=== PATIENT | female | born 1945 | race Caucasian/White ===

== ENCOUNTER 2023-09-19 15:37 | Inpatient (IN) ==
[2023-09-19] MEDS ORDERED: IOPAMIDOL 100 ML BOTTLE IV ONE (15:38)
[2023-09-19] MEDS: methylPREDNISolone SOD SUCC 125 MG/2 ML VIAL IV ONE (16:37)
[2023-09-19] MEDS: IPRATROPIUM/ALBUTEROL 3 ML AMPUL.NEB NEB ONE (17:21)
[2023-09-19] MEDS: cefTRIAXone 1 GM VIAL IV ONE (17:28)
[2023-09-19] MEDS: AZITHROMYCIN 500 MG in DEXTROSE 5% IN WATER 250 ML IV ONE (17:28)
[2023-09-19 17:30] LABS: Blood Urea Nitrogen 7 mg/dL (8-23); Calcium 8.7 mg/dL (8.6-10.4); Carbon Dioxide 30 mmol/L (22-30); Chloride 98 mmol/L (96-108); Glomerular Filtration Rate 99; Glucose 110 mg/dL (70-105)
[2023-09-19 17:39] LABS: Basophils # (Auto) 0.01 K/mcL (0.00-0.30); Basophils % (Auto) 0.2 % (0.0-2.0); Eosinophils # (Auto) 0.03 K/mcL (0.00-0.70); Eosinophils % (Auto) 0.5 % (0.0-7.0); Hematocrit 33.3 % (34.1-44.9); Hemoglobin 10.3 g/dL (11.2-15.7); Lymphocytes # (Auto) 0.55 K/mcL (1.50-4.80); Lymphocytes % (Auto) 9.9 % (15.5-49.0); Mean Cell Volume 102.5 fL (80.0-100.0); Mean Corpuscular HGB Conc 30.9 g/dL (31.0-36.0); Monocytes # (Auto) 0.74 K/mcL (0.10-0.90); Monocytes % (Auto) 13.4 % (1.0-12.0); Neutrophils % (Auto) 75.8 % (38.0-78.0); Platelet Count 241 K/mcL (140-440); RBC 3.25 M/mcL (3.59-5.38); WBC 5.5 K/mcL (4.5-11.0)
[2023-09-19] MEDS: VANCOMYCIN 750 MG in 0.9 % SODIUM CHLORIDE 250 ML IV ONE (20:32)
[2023-09-19] MEDS: VANCOMYCIN PER PHARMACY IV SCH (20:32)
[2023-09-19] MEDS ORDERED: ONDANSETRON 4 MG/2 ML VIAL IV PRN (21:03)
[2023-09-19] MEDS ORDERED: ZOLPIDEM 5 MG TABLET PO PRN (21:03)
[2023-09-19] MEDS ORDERED: traZODone HCL 50 MG TABLET PO PRN (21:03)
[2023-09-19] MEDS ORDERED: oxyCODONE IR 5 MG TABLET PO PRN (21:03)
[2023-09-19] MEDS: BUDESONIDE 0.5 MG/2 ML AMPUL.NEB NEB SCH (21:15)
[2023-09-19] MEDS: IPRATROPIUM/ALBUTEROL 3 ML AMPUL.NEB NEB SCH (21:15)
[2023-09-19] MEDS: BENZONATATE 100 MG CAPSULE PO SCH (21:46)
[2023-09-19] MEDS: guaiFENesin 600 MG TAB.SR.12H PO SCH (21:47)
[2023-09-19] MEDS: SIMVASTATIN 20 MG TABLET PO SCH (21:47)
[2023-09-19] MEDS: MONTELUKAST 10 MG TABLET PO SCH (21:47)
[2023-09-19] MEDS: SENNOSIDES 1 TABLET PO SCH (21:49)
[2023-09-19] MEDS: 0.9 % SODIUM CHLORIDE 10 ML SYRINGE IV SCH (22:02)
[2023-09-19] MEDS: PIPERACILLIN SODIUM/TAZOBACTAM 3.375 GM in DEXTROSE 5% IN WATER 50 ML IV ONE (22:06)
[2023-09-20] MEDS: methylPREDNISolone SOD SUCC 40 MG/ML VIAL IV SCH (00:43)
[2023-09-20] MEDS: PIPERACILLIN SODIUM/TAZOBACTAM 3.375 GM in DEXTROSE 5% IN WATER 100 ML IV SCH (02:13)
[2023-09-20] MEDS: PIPERACILLIN SODIUM/TAZOBACTAM 3.375 GM in DEXTROSE 5% IN WATER 50 ML IV SCH (04:10)
[2023-09-20 06:37] LABS: Basophils # (Auto) 0.01 K/mcL (0.00-0.30); Basophils % (Auto) 0.4 % (0.0-2.0); Eosinophils # (Auto) 0 K/mcL (0.00-0.70); Eosinophils % (Auto) 0 % (0.0-7.0); Hematocrit 34.4 % (34.1-44.9); Hemoglobin 10.6 g/dL (11.2-15.7); Lymphocytes # (Auto) 0.18 K/mcL (1.50-4.80); Lymphocytes % (Auto) 6.6 % (15.5-49.0); Mean Cell Volume 102.4 fL (80.0-100.0); Mean Corpuscular HGB Conc 30.8 g/dL (31.0-36.0); Mean Platelet Volume 9.7 fL (8.8-12.5); Monocytes # (Auto) 0.04 K/mcL (0.10-0.90); Monocytes % (Auto) 1.5 % (1.0-12.0); Neutrophils % (Auto) 91.1 % (38.0-78.0); Platelet Count 226 K/mcL (140-440); RBC 3.36 M/mcL (3.59-5.38); Red Cell Distribution Width 12.7 % (11.5-14.5); WBC 2.7 K/mcL (4.5-11.0)
[2023-09-20 06:59] LABS: ALT/SGPT 5 U/L (<40); AST/SGOT 19 U/L (<32); Albumin 3.6 gm/dL (3.2-5.2); Albumin/Globulin Ratio 1.4 (1.0-2.3); Alkaline Phosphatase 115 U/L (39-117); Bilirubin,Total 0.2 mg/dL (0.1-1.0); Blood Urea Nitrogen 10 mg/dL (8-23); Calcium 8.5 mg/dL (8.6-10.4); Carbon Dioxide 30 mmol/L (22-30); Chloride 100 mmol/L (96-108); Globulin 2.5 gm/dL (2.2-3.7); Glomerular Filtration Rate 99; Glucose 160 mg/dL (70-105)
[2023-09-20] MEDS: ACETAMINOPHEN 325 MG TABLET PO PRN (07:06)
[2023-09-20] MEDS: OMEPRAZOLE 20 MG CAPSULE PO SCH (07:07)
[2023-09-20] MEDS: DOXAZOSIN 1 MG TABLET PO SCH (09:18)
[2023-09-20] MEDS: ENOXAPARIN 30 MG/0.3 ML SYRINGE SQ SCH (09:18)
[2023-09-20] MEDS: amLODIPine 5 MG TABLET PO SCH (09:18)
[2023-09-20] MEDS: LORATADINE 10 MG TABLET PO SCH (09:19)
[2023-09-20] MEDS: VANCOMYCIN 1,000 MG in 0.9 % SODIUM CHLORIDE 250 ML IV ONE (14:53)
[2023-09-20] MEDS: POTASSIUM CHLORIDE 10 MEQ TABLET PO SCH (17:27)
[2023-09-20] MEDS: CARBOXYMETHYLCELLULOSE SODIUM 1 EACH DROPER.GEL OU SCH (21:44)
[2023-09-20] MEDS: ATORVASTATIN 10 MG TABLET PO SCH (21:44)
[2023-09-20] MEDS: hydrOXYzine 10 MG TABLET PO PRN (21:44)
[2023-09-20] MEDS: MELATONIN 3 MG TABLET PO PRN (21:44)
[2023-09-21 06:03] LABS: ALT/SGPT < 5 U/L (<40); AST/SGOT 15 U/L (<32); Albumin 3.5 gm/dL (3.2-5.2); Albumin/Globulin Ratio 1.5 (1.0-2.3); Alkaline Phosphatase 104 U/L (39-117); Bilirubin,Total < 0.2 mg/dL (0.1-1.0); Blood Urea Nitrogen 13 mg/dL (8-23); Calcium 8.6 mg/dL (8.6-10.4); Carbon Dioxide 32 mmol/L (22-30); Chloride 101 mmol/L (96-108); Globulin 2.4 gm/dL (2.2-3.7); Glomerular Filtration Rate 99; Glucose 150 mg/dL (70-105)
[2023-09-21 06:22] LABS: Basophils # (Auto) 0.02 K/mcL (0.00-0.30); Basophils % (Auto) 0.2 % (0.0-2.0); Eosinophils # (Auto) 0 K/mcL (0.00-0.70); Eosinophils % (Auto) 0 % (0.0-7.0); Hematocrit 33.8 % (34.1-44.9); Hemoglobin 10.4 g/dL (11.2-15.7); Lymphocytes # (Auto) 0.26 K/mcL (1.50-4.80); Mean Cell Volume 102.7 fL (80.0-100.0); Mean Corpuscular HGB Conc 30.8 g/dL (31.0-36.0); Mean Platelet Volume 9.7 fL (8.8-12.5); Monocytes # (Auto) 0.33 K/mcL (0.10-0.90); Monocytes % (Auto) 3.8 % (1.0-12.0); Neutrophils % (Auto) 92.8 % (38.0-78.0); Platelet Count 256 K/mcL (140-440); RBC 3.29 M/mcL (3.59-5.38); Red Cell Distribution Width 12.9 % (11.5-14.5); WBC 8.7 K/mcL (4.5-11.0)
[2023-09-21] MEDS: LEVOTHYROXINE 50 MCG TABLET PO SCH (07:33)
[2023-09-21] MEDS: VANCOMYCIN 1,000 MG in 0.9 % SODIUM CHLORIDE 250 ML IV SCH (09:33)
[2023-09-21] MEDS: MAGNESIUM OXIDE 400 MG TABLET PO SCH (09:35)
[2023-09-21] MEDS: VITAMIN D3 25 MCG TABLET PO SCH (09:35)
[2023-09-21] MEDS: PIPERACILLIN SODIUM/TAZOBACTAM 3.375 GM in 0.9 % SODIUM CHLORIDE 100 ML IV SCH (10:53)
[2023-09-21 18:19] LABS: C-Reactive Protein 0.84 mg/dL (0.03-0.80)
[2023-09-21] MEDS: methylPREDNISolone SOD SUCC 40 MG/ML VIAL IV SCH (21:59)
[2023-09-22 07:02] LABS: C-Reactive Protein < 0.30 mg/dL (0.03-0.80)
[2023-09-22 07:12] LABS: ALT/SGPT 8 U/L (<40); AST/SGOT 13 U/L (<32); Albumin 3.5 gm/dL (3.2-5.2); Albumin/Globulin Ratio 1.6 (1.0-2.3); Alkaline Phosphatase 95 U/L (39-117); Bilirubin,Total < 0.2 mg/dL (0.1-1.0); Blood Urea Nitrogen 22 mg/dL (8-23); Calcium 8.7 mg/dL (8.6-10.4); Carbon Dioxide 33 mmol/L (22-30); Chloride 105 mmol/L (96-108); Globulin 2.2 gm/dL (2.2-3.7); Glomerular Filtration Rate 99; Glucose 130 mg/dL (70-105)
[2023-09-22 07:26] LABS: Basophils # (Auto) 0.01 K/mcL (0.00-0.30); Basophils % (Auto) 0.1 % (0.0-2.0); Eosinophils # (Auto) 0 K/mcL (0.00-0.70); Eosinophils % (Auto) 0 % (0.0-7.0); Hematocrit 33.7 % (34.1-44.9); Lymphocytes # (Auto) 0.29 K/mcL (1.50-4.80); Lymphocytes % (Auto) 3.5 % (15.5-49.0); Mean Cell Volume 104.7 fL (80.0-100.0); Mean Corpuscular HGB Conc 29.7 g/dL (31.0-36.0); Mean Platelet Volume 9.7 fL (8.8-12.5); Monocytes # (Auto) 0.43 K/mcL (0.10-0.90); Monocytes % (Auto) 5.2 % (1.0-12.0); Platelet Count 259 K/mcL (140-440); RBC 3.22 M/mcL (3.59-5.38); Red Cell Distribution Width 12.9 % (11.5-14.5); WBC 8.3 K/mcL (4.5-11.0)
[2023-09-22] MEDS: methylPREDNISolone SOD SUCC 40 MG/ML VIAL IV SCH (08:15)
[2023-09-22] MEDS: VANCOMYCIN 750 MG in 0.9 % SODIUM CHLORIDE 250 ML IV SCH (21:21)
[2023-09-23 06:56] LABS: Basophils # (Auto) 0.01 K/mcL (0.00-0.30); Basophils % (Auto) 0.1 % (0.0-2.0); Eosinophils # (Auto) 0 K/mcL (0.00-0.70); Eosinophils % (Auto) 0 % (0.0-7.0); Hematocrit 32.6 % (34.1-44.9); Hemoglobin 9.6 g/dL (11.2-15.7); Lymphocytes # (Auto) 0.92 K/mcL (1.50-4.80); Lymphocytes % (Auto) 11.9 % (15.5-49.0); Mean Cell Volume 106.9 fL (80.0-100.0); Mean Corpuscular HGB Conc 29.4 g/dL (31.0-36.0); Monocytes # (Auto) 1.06 K/mcL (0.10-0.90); Monocytes % (Auto) 13.7 % (1.0-12.0); Platelet Count 243 K/mcL (140-440); RBC 3.05 M/mcL (3.59-5.38); Red Cell Distribution Width 13.1 % (11.5-14.5); WBC 7.7 K/mcL (4.5-11.0)
[2023-09-23 07:08] LABS: C-Reactive Protein < 0.30 mg/dL (0.03-0.80)
[2023-09-23 07:10] LABS: ALT/SGPT 7 U/L (<40); AST/SGOT 14 U/L (<32); Albumin 3.4 gm/dL (3.2-5.2); Albumin/Globulin Ratio 1.8 (1.0-2.3); Alkaline Phosphatase 83 U/L (39-117); Bilirubin,Total < 0.2 mg/dL (0.1-1.0); Blood Urea Nitrogen 24 mg/dL (8-23); Calcium 8.4 mg/dL (8.6-10.4); Carbon Dioxide 36 mmol/L (22-30); Chloride 105 mmol/L (96-108); Globulin 1.9 gm/dL (2.2-3.7); Glomerular Filtration Rate 99; Glucose 80 mg/dL (70-105)
[2023-09-23] MEDS: DOXYCYCLINE 100 MG in DEXTROSE 5% IN WATER 100 ML IV SCH (08:50)
[2023-09-23] MEDS: LEVOFLOXACIN 750 MG/150 ML BAG IV SCH (10:55)
[2023-09-24 06:40] LABS: Basophils # (Auto) 0.01 K/mcL (0.00-0.30); Basophils % (Auto) 0.2 % (0.0-2.0); Eosinophils # (Auto) 0 K/mcL (0.00-0.70); Eosinophils % (Auto) 0 % (0.0-7.0); Hematocrit 33.4 % (34.1-44.9); Hemoglobin 9.9 g/dL (11.2-15.7); Lymphocytes # (Auto) 0.68 K/mcL (1.50-4.80); Mean Corpuscular HGB Conc 29.6 g/dL (31.0-36.0); Mean Platelet Volume 9.9 fL (8.8-12.5); Monocytes # (Auto) 0.68 K/mcL (0.10-0.90); Neutrophils % (Auto) 77.5 % (38.0-78.0); Platelet Count 228 K/mcL (140-440); RBC 3.18 M/mcL (3.59-5.38); Red Cell Distribution Width 12.8 % (11.5-14.5); WBC 6.2 K/mcL (4.5-11.0)
[2023-09-24 07:25] LABS: ALT/SGPT 8 U/L (<40); AST/SGOT 12 U/L (<32); Albumin 3.5 gm/dL (3.2-5.2); Albumin/Globulin Ratio 1.9 (1.0-2.3); Alkaline Phosphatase 84 U/L (39-117); Bilirubin,Total < 0.2 mg/dL (0.1-1.0); Blood Urea Nitrogen 12 mg/dL (8-23); Calcium 8.8 mg/dL (8.6-10.4); Carbon Dioxide 37 mmol/L (22-30); Chloride 100 mmol/L (96-108); Globulin 1.8 gm/dL (2.2-3.7); Glomerular Filtration Rate 109; Glucose 99 mg/dL (70-105)
[2023-09-24] MEDS: LEVOFLOXACIN 750 MG TABLET PO SCH (09:45)
[2023-09-24] MEDS: DOXYCYCLINE HYCLATE 100 MG TABLET.ORL PO SCH (09:48)
[2023-09-25] MEDS ORDERED: predniSONE 10 MG TABLET PO SCH (08:00)
== END 2023-09-24 12:35 | DRG 190 ==
LOC: ED 15:37 → MEDSUR 21:00 → INTOOBSV 21:00
PROVIDERS: ADMIT Internal Medicine; ATTEND Student in an Organized Health Care Education/Training Program

== ENCOUNTER 2023-10-08 01:21 | Inpatient (IN) ==
[2023-10-08] MEDS ORDERED: IOPAMIDOL 100 ML BOTTLE IV ONE (01:22)
[2023-10-08] MEDS: IPRATROPIUM/ALBUTEROL 3 ML AMPUL.NEB NEB ONE (02:08)
[2023-10-08 02:49] LABS: ALT/SGPT 14 U/L (<40); AST/SGOT 31 U/L (<32); Albumin 3.1 gm/dL (3.2-5.2); Albumin/Globulin Ratio 1.2 (1.0-2.3); Alkaline Phosphatase 97 U/L (39-117); Bilirubin,Total < 0.2 mg/dL (0.1-1.0); Blood Urea Nitrogen 14 mg/dL (8-23); Calcium 8.7 mg/dL (8.6-10.4); Carbon Dioxide 35 mmol/L (22-30); Chloride 93 mmol/L (96-108); Globulin 2.5 gm/dL (2.2-3.7); Glomerular Filtration Rate 99; Glucose 146 mg/dL (70-105)
[2023-10-08 03:05] LABS: Hemoglobin 10.1 g/dL (11.2-15.7); Mean Cell Volume 99.1 fL (80.0-100.0); Mean Corpuscular HGB Conc 30.6 g/dL (31.0-36.0); Mean Platelet Volume 10.3 fL (8.8-12.5); Platelet Count 168 K/mcL (140-440); RBC 3.33 M/mcL (3.59-5.38); Red Cell Distribution Width 13.1 % (11.5-14.5); WBC 9.5 K/mcL (4.5-11.0)
[2023-10-08 04:33] LABS: Band Neutrophils % 7 % (0-10); Lymphocytes % 3 % (15-49); Monocytes % (Manual) 2 % (1-12); Platelet Estimate NORMAL (Normal); RBC Morphology NORMAL (Normal); Segmented Neutrophils % 88 % (38-78)
[2023-10-08] MEDS: PIPERACILLIN SODIUM/TAZOBACTAM 3.375 GM in DEXTROSE 5% IN WATER 50 ML IV ONE (08:36)
[2023-10-08] MEDS ORDERED: LACTULOSE 20 GM/30 ML ORAL.SOL PO PRN (09:47)
[2023-10-08] MEDS ORDERED: SENNOSIDES 1 TABLET PO PRN (09:47)
[2023-10-08] MEDS ORDERED: ONDANSETRON 4 MG/2 ML VIAL IV PRN (09:47)
[2023-10-08] MEDS: 0.9 % SODIUM CHLORIDE 1,000 ML IV SCH (09:52)
[2023-10-08] MEDS: AZITHROMYCIN 500 MG in DEXTROSE 5% IN WATER 250 ML IV SCH (10:31)
[2023-10-08] MEDS: 0.9 % SODIUM CHLORIDE 500 ML IV ONE (10:33)
[2023-10-08] MEDS: CEFEPIME 2 GM VIAL IV SCH (10:42)
[2023-10-08] MEDS: methylPREDNISolone SOD SUCC 125 MG/2 ML VIAL IV SCH (10:42)
[2023-10-08] MEDS: ENOXAPARIN 40 MG/0.4 ML SYRINGE SQ SCH (10:42)
[2023-10-08] MEDS: IPRATROPIUM/ALBUTEROL 3 ML AMPUL.NEB NEB SCH (10:42)
[2023-10-08] MEDS: DOCUSATE SODIUM 100 MG CAPSULE PO SCH (10:43)
[2023-10-08 12:53] LABS: ABG Methemoglobin 0.4 % (0.4-1.5); Total Hemoglobin 11.4 gm/Dl (12.0-15.0); VBG Base Excess 9 (-2-3); VBG HCO3 35.9 mmol/L (24.0-28.0); VBG Oxygen Saturation 93.6 % (40.0-70.0); VBG PCO2 63.9 mmHg (41.0-51.0); VBG PH 7.37 U (7.32-7.42); VBG PO2 119.2 mmHg (25.0-40.0); VBG Total CO2 37.9 mmol/L (25.0-29.0)
[2023-10-08 13:55] LABS: ALT/SGPT 21 U/L (<40); AST/SGOT 22 U/L (<32); Albumin 2.9 gm/dL (3.2-5.2); Alkaline Phosphatase 101 U/L (39-117); Bilirubin,Direct < 0.2 mg/dL (0-0.3); Bilirubin,Total < 0.2 mg/dL (0.1-1.0); Blood Urea Nitrogen 12 mg/dL (8-23); Calcium 7.6 mg/dL (8.6-10.4); Carbon Dioxide 33 mmol/L (22-30); Chloride 100 mmol/L (96-108); Globulin 2.9 gm/dL (2.2-3.7); Glomerular Filtration Rate 109; Glucose 251 mg/dL (70-105); Lactate Dehydrogenase 165 U/L (135-225); Phosphorous 2.6 mg/dL (2.5-4.5); Triglycerides 51 mg/dL (<150)
[2023-10-08] MEDS ORDERED: ACETAMINOPHEN 500 MG TABLET PO PRN (15:13)
[2023-10-08] MEDS: 0.45 % SODIUM CHLORIDE 1,000 ML IV SCH (15:22)
[2023-10-08] MEDS: 0.9 % SODIUM CHLORIDE 10 ML SYRINGE IV SCH (15:24)
[2023-10-08] MEDS ORDERED: ALBUTEROL SULFATE 60 PUFF INHALER INH PRN (15:30)
[2023-10-08] MEDS: ACETAMINOPHEN 325 MG TABLET PO PRN (17:13)
[2023-10-08] MEDS ORDERED: [UNRECOGNIZED DRUG - OTHER] PO PRN (20:12)
[2023-10-08] MEDS: MONTELUKAST 10 MG TABLET PO SCH (20:29)
[2023-10-08] MEDS: ATORVASTATIN 10 MG TABLET PO SCH (20:29)
[2023-10-08] MEDS: PROPYLENE GLYCOL OU SCH (20:30)
[2023-10-08] MEDS: POLYETHYLENE GLYCOL 400 OU SCH (20:30)
[2023-10-08] MEDS: hydrOXYzine 10 MG TABLET PO PRN (20:47)
[2023-10-09 06:32] LABS: ABG Methemoglobin 0.2 % (0.4-1.5); Total Hemoglobin 11.7 gm/Dl (12.0-15.0); VBG Base Excess 10 (-2-3); VBG HCO3 35.3 mmol/L (24.0-28.0); VBG Oxygen Saturation 90.4 % (40.0-70.0); VBG PCO2 52.3 mmHg (41.0-51.0); VBG PH 7.45 U (7.32-7.42); VBG Total CO2 36.9 mmol/L (25.0-29.0)
[2023-10-09 06:34] LABS: Basophils # (Auto) 0.01 K/mcL (0.00-0.30); Basophils % (Auto) 0.1 % (0.0-2.0); Eosinophils # (Auto) 0 K/mcL (0.00-0.70); Eosinophils % (Auto) 0 % (0.0-7.0); Hematocrit 34.2 % (34.1-44.9); Hemoglobin 10.4 g/dL (11.2-15.7); Lymphocytes # (Auto) 0.23 K/mcL (1.50-4.80); Lymphocytes % (Auto) 2.8 % (15.5-49.0); Mean Cell Volume 100.3 fL (80.0-100.0); Mean Corpuscular HGB Conc 30.4 g/dL (31.0-36.0); Mean Platelet Volume 10.5 fL (8.8-12.5); Monocytes # (Auto) 0.64 K/mcL (0.10-0.90); Monocytes % (Auto) 7.7 % (1.0-12.0); Neutrophils % (Auto) 89.3 % (38.0-78.0); Platelet Count 171 K/mcL (140-440); RBC 3.41 M/mcL (3.59-5.38); Red Cell Distribution Width 12.9 % (11.5-14.5); WBC 8.3 K/mcL (4.5-11.0)
[2023-10-09 06:47] LABS: ALT/SGPT 15 U/L (<40); AST/SGOT 22 U/L (<32); Albumin 3.1 gm/dL (3.2-5.2); Albumin/Globulin Ratio 1.1 (1.0-2.3); Alkaline Phosphatase 90 U/L (39-117); Bilirubin,Direct < 0.2 mg/dL (0-0.3); Bilirubin,Total < 0.2 mg/dL (0.1-1.0); Blood Urea Nitrogen 11 mg/dL (8-23); Calcium 8.9 mg/dL (8.6-10.4); Carbon Dioxide 36 mmol/L (22-30); Chloride 97 mmol/L (96-108); Globulin 2.7 gm/dL (2.2-3.7); Glomerular Filtration Rate 109; Glucose 149 mg/dL (70-105); Lactate Dehydrogenase 179 U/L (135-225); Phosphorous 1.8 mg/dL (2.5-4.5); Triglycerides 90 mg/dL (<150); Uric Acid 1.9 mg/dL (2.5-8.0)
[2023-10-09] MEDS ORDERED: METOPROLOL SUCCINATE 25 MG TAB.XL.24H PO SCH (09:00)
[2023-10-09] MEDS: LIDOCAINE 4% TOP PATCH TOPICAL SCH (09:19)
[2023-10-09] MEDS: guaiFENesin 600 MG TAB.SR.12H PO SCH (09:19)
[2023-10-09] MEDS: MULTIVIT,THER IRON,CA,FA & MIN 1 TABLET PO SCH (09:19)
[2023-10-09] MEDS: OMEPRAZOLE 20 MG CAPSULE PO SCH (09:20)
[2023-10-09] MEDS: DOXAZOSIN 1 MG TABLET PO SCH (09:20)
[2023-10-09] MEDS: MAGNESIUM OXIDE 400 MG TABLET PO SCH (09:20)
[2023-10-09] MEDS: VITAMIN D3 25 MCG TABLET PO SCH (09:21)
[2023-10-09] MEDS: amLODIPine 5 MG TABLET PO SCH (09:22)
[2023-10-09] MEDS: LEVOTHYROXINE 50 MCG TABLET PO SCH (09:22)
[2023-10-09] MEDS: METOPROLOL SUCCINATE 25 MG TAB.XL.24H PO SCH (09:22)
[2023-10-09] MEDS: LORATADINE 10 MG TABLET PO SCH (09:22)
[2023-10-09] MEDS: Fluticasone-Umeclidinium-Vilanterol [Trelegy Ellipta] Inhaler INH SCH (16:46)
[2023-10-09] MEDS: LORazepam 0.5 MG TABLET PO PRN (18:46)
[2023-10-09] MEDS: MELATONIN 3 MG TABLET PO PRN (19:37)
[2023-10-10 05:43] LABS: Basophils # (Auto) 0.01 K/mcL (0.00-0.30); Basophils % (Auto) 0.1 % (0.0-2.0); Eosinophils # (Auto) 0 K/mcL (0.00-0.70); Eosinophils % (Auto) 0 % (0.0-7.0); Hematocrit 32.8 % (34.1-44.9); Hemoglobin 9.9 g/dL (11.2-15.7); Lymphocytes # (Auto) 0.21 K/mcL (1.50-4.80); Lymphocytes % (Auto) 2.6 % (15.5-49.0); Mean Cell Volume 101.5 fL (80.0-100.0); Mean Corpuscular HGB Conc 30.2 g/dL (31.0-36.0); Mean Platelet Volume 10.6 fL (8.8-12.5); Monocytes # (Auto) 0.22 K/mcL (0.10-0.90); Monocytes % (Auto) 2.7 % (1.0-12.0); Neutrophils % (Auto) 94.5 % (38.0-78.0); Platelet Count 163 K/mcL (140-440); RBC 3.23 M/mcL (3.59-5.38); Red Cell Distribution Width 12.9 % (11.5-14.5); WBC 8.2 K/mcL (4.5-11.0)
[2023-10-10 06:06] LABS: ALT/SGPT 14 U/L (<40); AST/SGOT 17 U/L (<32); Albumin/Globulin Ratio 1.2 (1.0-2.3); Alkaline Phosphatase 83 U/L (39-117); Bilirubin,Direct < 0.2 mg/dL (0-0.3); Bilirubin,Total < 0.2 mg/dL (0.1-1.0); Blood Urea Nitrogen 17 mg/dL (8-23); Calcium 8.8 mg/dL (8.6-10.4); Carbon Dioxide 37 mmol/L (22-30); Chloride 99 mmol/L (96-108); Globulin 2.5 gm/dL (2.2-3.7); Glomerular Filtration Rate 109; Glucose 151 mg/dL (70-105); Lactate Dehydrogenase 177 U/L (135-225); Phosphorous 1.8 mg/dL (2.5-4.5); Triglycerides 84 mg/dL (<150); Uric Acid 1.8 mg/dL (2.5-8.0)
[2023-10-10] MEDS: ALBUTEROL SULFATE 2.5 MG/3 ML NEBULIZER NEB PRN (07:18)
[2023-10-10] MEDS ORDERED: ONDANSETRON 4 MG ODT TABLET SL PRN (12:33)
[2023-10-10] MEDS ORDERED: morphine 4 MG/ML VIAL NEB PRN (12:33)
[2023-10-10] MEDS ORDERED: LACTOPEROXI/GLUC OXID/POT THIO 1 EACH GEL..EA. TOPICAL PRN (12:33)
[2023-10-10] MEDS: morphine 4 MG/ML VIAL IV PRN (12:45)
[2023-10-10] MEDS: 0.9 % SODIUM CHLORIDE 10 ML SYRINGE IV SCH (15:29)
[2023-10-10] MEDS: SCOPOLAMINE 1 PATCH PATCH TOPICAL SCH (17:18)
[2023-10-11] MEDS: CARBOXYMETHYLCELLULOSE SODIUM 1 EACH DROPER.GEL OP PRN (09:38)
[2023-10-11] MEDS: LORazepam 2 MG/ML VIAL IV PRN (09:51)
[2023-10-11] MEDS ORDERED: IPRATROPIUM/ALBUTEROL 3 ML AMPUL.NEB NEB PRN (16:25)
== END 2023-10-12 19:27 | disposition expired | DRG 189 ==
LOC: ED 01:21 → ICU 09:22 → MEDSUR 10-11 16:30
PROVIDERS: ADMIT Internal Medicine; ATTEND Internal Medicine